=== PATIENT | male | born 1950 | race Caucasian/White ===

== ENCOUNTER 2017-03-21 08:08 | Observation (INO) | payer OTHER, MEDICARE ==
[~2017-03-21] VITALS: Ht 167.6 cm; Wt 84.5 kg
[~2017-03-21 08:08] MED LIST: BENA10TA48 PO; GLIM4TAB PO; METF1000 PO
--- NOTE | 2017-03-21 08:38 | ERA ---
ER Documentation Chief Complaint Date/Time DATE: 03/21/17 TIME: 08:36 Chief Complaint intermittent right arm and courtney foot numbness started 2 days ago.dizziness HPI Patient is a 66-year-old male who presents with sudden onset, constant, mild to moderate right arm weakness associated with right arm and facial numbness lasting 6 hours that occurred yesterday. He reports that the same symptoms occurred 2 days ago but resolved completely. He tried to see his PMD yesterday , but was told to come to the emergency department. He denies difficulty speaking. 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 He denies vertigo. He denies past history of stroke. He states that his symptoms completely resolved yesterday. ROS All systems reviewed and are negative except as per history of present illness. Medications Home Meds Reported Medications Simvastatin* (Zocor*) 10 Mg Tablet, 10 MG PO QHS, #30 TAB 03/21/17 Metformin Hcl* (Metformin Hcl*) 1,000 Mg Tablet, 1000 MG PO WITH BREAKFAST DINNE , #60 TAB 03/21/17 Glimepiride* (Glimepiride*) 4 Mg Tablet, 4 MG PO WITH BREAKFAST, TAB 03/21/17 Benazepril Hcl* (Benazepril Hcl*) 10 Mg Tablet, 10 MG PO DAILY, #30 TAB 03/21/17 Discontinued Reported Medications Glimepiride* (Glimepiride*) 4 Mg Tablet, 4 MG PO DAILY 11/21/11 Metformin Hcl* (Metformin Hcl*) 1,000 Mg Tablet, 1000 MG PO BID 11/21/11 Benazepril Hcl* (Benazepril Hcl*) 10 Mg Tablet, 10 MG PO BID 11/21/11 Allergies Allergies: Coded Allergies: No Known Allergies (Verified Allergy, Unknown, 03/21/17) PMhx/Soc Past medical history: Diabetes mellitus, hypertension, hyperlipidemia Past surgical history: Cholecystectomy Social history: Takes occasional alcohol, denies tobacco History of Surgery: No Anesthesia Reaction: No Hx Neurological Disorder: No Hx Respiratory Disorders: No Hx Cardiac Disorders: Yes (HTN) Hx Psychiatric Problems: No Hx Miscellaneous Medical Probl: No Hx Alcohol Use: Yes Hx Substance Use: No Hx Tobacco Use: No FmHx Family History: No coronary disease, No diabetes Physical Exam Vitals Vital Signs Date Time Temp Pulse Resp B/P Pulse Ox O2 Delivery O2 Flow Rate FiO2 03/21/17 11:35 59 18 165/77 99 Room Air 03/21/17 08:45 98.2 64 14 142/83 99 Room Air 03/21/17 08:12 98.2 67 18 164/75 98 Physical Exam Const: Alert, no acute distress Head: Atraumatic Eyes: Normal Conjunctiva, no pallor, no icterus ENT: Normal External Ears, Nose and Mouth. His membranes moist Neck: Full range of motion..~ No meningismus. No carotid bruit Resp: Clear to auscultation bilaterally, no wheezes, no rales Cardio: Regular rate and rhythm, no murmurs Abd: Soft, non tender, non distended. Skin: No petechiae or rashes Back: No midline or flank tenderness Ext: No cyanosis, or edema Neur: Awake and alert, cranial nerves II through XII intact bilaterally, strength incision full in 4 extremities, no pronator drift, no dysmetria Psych: Normal Mood and Affect Result Diagram: 03/21/17 0844 03/21/17 0844 Results 24 hrs Laboratory Tests Test 03/21/17 08:44 03/21/17 08:46 White Blood Count 6.910^3/ul Red Blood Count 4.1610^6/ul Hemoglobin 13.3g/dl Hematocrit 38.0% Mean Corpuscular Volume 91.3fl Mean Corpuscular Hemoglobin 32.0pg Mean Corpuscular Hemoglobin Concent 35.0g/dl Red Cell Distribution Width 12.3% Platelet Count 31507^3/UL Mean Platelet Volume 12.8fl Neutrophils % 67.6% Lymphocytes % 18.4% Monocytes % 10.0% Eosinophils % 3.3% Basophils % 0.4% Nucleated Red Blood Cells % 0.0/100WBC Neutrophils # 4.710^3/ul Lymphocytes # 1.310^3/ul Monocytes # 0.710^3/ul Eosinophils # 0.210^3/ul Basophils # 0.010^3/ul Nucleated Red Blood Cells # 0.010^3/ul Prothrombin Time 12.2Sec Prothrombin Time Ratio 1.0 INR International Normalized Ratio 0.91 Activated Partial Thromboplast Time 28.6Sec Sodium Level 138mmol/L Potassium Level 4.4mmol/L Chloride Level 97mmol/L Carbon Dioxide Level 27mmol/L Anion Gap 18 Blood Urea Nitrogen 16mg/dl Creatinine 0.84mg/dl Glucose Level 230mg/dl Calcium Level 9.9mg/dl Total Bilirubin 0.5mg/dl Direct Bilirubin 0.00mg/dl Indirect Bilirubin 0.5mg/dl Aspartate Amino Transf (AST/SGOT) 30IU/L Alanine Aminotransferase (ALT/SGPT) 38IU/L Alkaline Phosphatase 53IU/L Troponin I < 0.012ng/ml Total Protein 7.1g/dl Albumin 4.6g/dl Globulin 2.50g/dl Albumin/Globulin Ratio 1.84 Bedside Glucose 222mg/dL Current Medications Medications (Trade) Dose Ordered Sig/Elieser Route PRN Reason Start Time Stop Time Status Last Admin Dose Admin Aspirin (Aspirin) 162 mg ONCE ONCE PO 03/21/17 11:00 03/21/17 11:01 DC 03/21/17 11:26 Ondansetron HCl (Zofran Inj) 4 mg ER BRIDGE PRN IV NAUSEA AND/OR VOMITING 03/21/17 11:00 03/22/17 10:59 Acetaminophen (Tylenol Tab) 650 mg ER BRIDGE PRN PO MILD PAIN/FEVER 03/21/17 11:00 03/22/17 10:59 Procedures/MDM EKG read by me: Time 0843, rate 61 Rhythm: Normal sinus Rudolph: Normal Intervals: Normal ST-T waves: no ischemic changes Ectopy: No Q-waves: No Impression: No evidence of ischemia or arrhythmia MDM: Patient is a 66-year-old male with hypertension and diabetes who presents with 2 episodes in the last 3 days of right face and arm numbness associated with decreased hematology nurse educator strength and manual dexterity on the right. At this time he states his symptoms have completely resolved, and on physical exam there is no neurological deficit. The patient's head CT is unremarkable. He was given aspirin. Patient has no evidence of cardiac arrhythmia. His symptoms are consistent with TIA. His ABCD 2 score is intermediate risk, so he will be admitted for further workup. 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
[2017-03-21 08:45] VITALS: TEMP 98.2
--- NOTE | 2017-03-21 09:08 | RADRPT ---
PROCEDURE: CT Brain without contrast. CLINICAL INDICATION: Stroke TECHNIQUE: Routine CT scan of the brain was performed on a high resolution multi detector scanner without intravenous contrast. One or more of the following dose reduction techniques were used: Auto mated exposure control; Adjustment of the mA and/or kV according to patient size; Use of iterative r econstruction technique. CTDI = 42 mGy. DLP = 720 mGy-cm. COMPARISON: No prior relevant examinations are available for comparison. FINDINGS: Hemorrhage: No evidence of intracranial hemorrhage. Acute ischemic changes: No evidence of acute ischemic changes. Mass effect/Midline shift: None. Parenchymal volume: Within normal limits for age. Ventricular system: Concordant with parenchymal volume. Chronic changes: Mild chronic-appearing microvascular ischemic changes of the supratentorial white m atter. Atherosclerotic calcifications of the cavernous portions of both internal carotid arteries ar e present. Extracranial soft tissues: Soft tissue swelling of the dorsal left frontal scalp may be post-traumat ic. 7 mm probable dural calcification in the dorsal left frontal scalp near the vertex. Calvarium: No fractures. Paranasal sinuses: Visualized paranasal sinuses are clear. Mastoid air cells: Visualized mastoid air cells are clear. IMPRESSION: No acute intracranial abnormalities. Mild chronic-appearing microvascular ischemic changes of the supratentorial white matter. Mild soft tissue swelling involving the dorsal left frontal scalp is possibly post-traumatic. Results were discussed with Dr. Neil by telephone at 0904 hours on 03/21/[address] Sha borjas RPTAT: AADD .Sha Putnam MD, Date Time Electronically viewed and signed by .Sha Putnam MD, MD on 03/21/2017 09:07 .B/
--- NOTE | 2017-03-21 09:26 | RADRPT ---
PROCEDURE: XR Chest. CLINICAL INDICATION: Altered mental status TECHNIQUE: Single frontal view of the chest was obtained COMPARISON: None FINDINGS: The heart and mediastinum are within normal limits. The lungs are clear. There is no pleural effusion or pneumothorax. The bones and soft tissue show no acute change. IMPRESSION: No definite abnormalities are identified. RPTAT:AAJJ Dinh Stringer Physician Date Time Electronically viewed and signed by Dinh Stringer Physician on 03/21/2017 09:26 /
[2017-03-21 09:29] LABS: ADD SCAN DIFF NO
[2017-03-21 09:37] LABS: BASOPHILS % 0.4 % (0.0-2.0); EOSINOPHILS # 0.2 10^3/ul (0.0-0.5); EOSINOPHILS % 3.3 % (0.0-7.0); HEMOGLOBIN 13.3 g/dl (14.0-18.0); LYMPHOCYTES # 1.3 10^3/ul (0.8-2.9); LYMPHOCYTES % 18.4 % (15.0-51.0); MEAN CORPUSCULAR VOLUME 91.3 fl (82.0-101.0); MEAN PLATELET VOLUME 12.8 fl (7.4-10.4); MONOCYTE # 0.7 10^3/ul (0.3-0.9); NEUTROPHIL # 4.7 10^3/ul (1.6-7.5); NEUTROPHILS % 67.6 % (39.0-77.0); PLATELET COUNT 210 10^3/UL (140-415); RED BLOOD COUNT 4.16 10^6/ul (4.70-6.10); RED CELL DISTRIBUTION WIDTH 12.3 % (11.5-14.5); WHITE BLOOD COUNT 6.9 10^3/ul (4.8-10.8)
[2017-03-21 09:55] LABS: ALANINE AMINOTRANSFERASE 38 IU/L (13-69); ALBUMIN 4.6 g/dl (3.3-4.9); ALBUMIN/GLOBULIN RATIO 1.84; ALKALINE PHOSPHATASE 53 IU/L (42-121); ANION GAP 18 (8-16); ASPARTATE AMINO TRANSFERASE 30 IU/L (15-46); BILIRUBIN,INDIRECT 0.5 mg/dl (0-1.1); BILIRUBIN,TOTAL 0.5 mg/dl (0.2-1.3); BLOOD UREA NITROGEN 16 mg/dl (7-20); CALCIUM 9.9 mg/dl (8.4-10.2); CARBON DIOXIDE 27 mmol/L (21-31); CHLORIDE 97 mmol/L (97-110); CREATININE 0.84 mg/dl (0.61-1.24); GLUCOSE 230 mg/dl (70-220); POTASSIUM 4.4 mmol/L (3.5-5.1); SODIUM 138 mmol/L (135-144); TOTAL PROTEIN 7.1 g/dl (6.1-8.1)
[2017-03-21 09:57] LABS: INR 0.91; PROTIME 12.2 Sec (12.2-14.2)
[2017-03-21 09:58] LABS: PARTIAL THROMBOPLASTIN TIME 28.6 Sec (25.0-35.0)
[2017-03-21 10:17] LABS: TROPONIN-I < 0.012 ng/ml (0.00-0.12)
[2017-03-21] MEDS ORDERED: BENA10TA48 PO (10:30)
[2017-03-21] MEDS ORDERED: GLIM4TAB PO (10:31)
[2017-03-21] MEDS ORDERED: SIMV10TA PO (10:32)
[2017-03-21] MEDS ORDERED: METF1000 PO (10:32)
[2017-03-21] MEDS ORDERED: ASPIRIN 81 MG TAB PO ONE (11:00)
[2017-03-21] MEDS ORDERED: ONDANSETRON 4 MG INJ IV PRN ×2 (11:00→14:00)
[2017-03-21] MEDS ORDERED: ACETAMINOPHEN 325 MG TAB PO PRN ×2 (11:00→14:00)
[2017-03-21 12:18] VITALS: Ht 167.6 cm; Wt 84.5 kg
--- NOTE | 2017-03-21 13:52 | HP ---
Date/Time of Note Date/Time of Note DATE: 03/21/17 TIME: 13:46 Assessment/Plan VTE Prophylaxis VTE Prophylaxis Intervention: LMWH Lines/Catheters IV [facility]from [facility] Saline Lock Assessment/Plan Chief Complaint/Hosp Course 1. Right upper extremity and face numbness possibly secondary to TIA versus hyperglycemia-symptoms now resolved Check 2D echo and carotid ultrasound CT brain shows no acute findings but does show mild chronic-appearing microvascular ischemic changes of the supratentorial white matter and mild soft tissue swelling involving the dorsal left frontal scalp is possibly post- traumatic Aspirin and Lipitor 2. Diabetes: [id number] Hold home p.o. meds and start insulin Follow-up on A1c and lipid profile 3. Hypertension Resume home meds, patient is outside the window for permissive hypertension Prophylaxis: Lovenox Problems: HPI/ROS Admit Date/Time Admit Date/Time Mar 21, 2017 at 12:17 Hx of Present Illness Patient is a 66-year-old male with a history of hypertension and non-insulin- requiring diabetes. Patient presents with numbness in the right lip and in the right arm that started yesterday lasted for approximately 6 hours. Patient was told by his primary care physician to come to the ED, patient denies any history of strokes or history of heart attacks in the past. Patient denies any similar symptoms in the past and currently denies any numbness, weakness, nausea and vomiting. ROS Constitutional: improved, no complaints Eyes: no complaints ENT: no complaints Respiratory: no complaints Cardiovascular: no complaints Gastrointestinal: no complaints Genitourinary: no complaints Musculoskeletal: no complaints Skin: no complaints Neurologic: no complaints Endocrine: no complaints Lymphatic: no complaints Psychological: nl mood/affect, no complaints Immunologic: no complaints PMH/Family/Social Past Medical History Medical History: diabetes, high cholesterol, hypertension Past Surgical History Past Surgical Hx: cholecystectomy Family History Significant Family History: no pertinent family hx Social History Alcohol Use: occasionally Smoking Status: Never smoker Drug Use: none Exam/Review of Systems Vital Signs Vitals Vital Signs Date Time Temp Pulse Resp B/P Pulse Ox O2 Delivery O2 Flow Rate FiO2 03/21/17 11:35 59 18 165/77 99 Room Air 03/21/17 08:45 98.2 Exam Constitutional: alert, oriented Head: normocephalic Respiratory: clear to auscultation Cardiovascular: regular rate and rhythm Gastrointestinal: non-tender, soft, No distended Musculoskeletal: nl extremities to inspection Neurological: nl speech, nl strength, No focal weakness Labs Result Diagram: 03/21/1744 03/21/17843 Medications Medications Current Medications Miscellaneous Information Patients own medicat... BID@ XX ; Start 03/21/17 at 16:00 GURU HILTON Mar 21, 2017 13:51
[2017-03-21] MEDS ORDERED: HYDROCODONE/APAP (5/325) TAB PO PRN (14:00)
[2017-03-21] MEDS ORDERED: MAGNESIUM HYDROXIDE 30ML CUP PO PRN (14:00)
[2017-03-21] MEDS ORDERED: DOCUSATE SODIUM 100 MG CAP PO PRN (14:00)
[2017-03-21] MEDS ORDERED: GLUCAGON 1 MG INJ IM PRN (14:00)
[2017-03-21] MEDS ORDERED: morphine 2 MG INJ IV PRN (14:00)
[2017-03-21] MEDS ORDERED: ZOLPIDEM 5 MG TAB PO PRN (14:00)
[2017-03-21] MEDS ORDERED: GLUCOSE GEL 15 GRAM TUBE BUCCAL PRN (14:00)
[2017-03-21] MEDS ORDERED: DEXTROSE 50% 50 ML SYRINGE IV PRN ×2 (14:00)
[2017-03-21] MEDS ORDERED: hydrALAzine 20 MG INJ IV PRN (14:00)
[2017-03-21] MEDS ORDERED: GLUCOSE GEL 15 GRAM TUBE PO PRN ×2 (14:00)
[2017-03-21] MEDS ORDERED: NACL 0.9% 3 ML SYG IV SCH (14:00)
--- NOTE | 2017-03-21 14:11 | RADRPT ---
PROCEDURE: US carotid arteries. CLINICAL INDICATION: Dizziness. Transient ischemic attack. TECHNIQUE: Multiple sonographic images of the carotid arteries and vertebral arteries were obtaine d utilizing hill scale, duplex, and color-flow imaging. The images were reviewed on a PACS workstati on. COMPARISON: No prior studies are available for comparison. FINDINGS: Evaluation of the right carotid bifurcation region reveals mild atherosclerotic disease. Evaluation of the left carotid bifurcation region reveals mild atherosclerotic disease. There is antegrade flow within the vertebral arteries bilaterally. RIGHT CAROTID MEASUREMENTS: Common Carotid Htpres43 (cm/sec) Internal Carotid Artery 60 (cm/sec) External Carotid Artery 92 (cm/sec) Vertebral Artery 55 (cm/sec) Internal Carotid/Common Carotid0.8 LEFT CAROTID MEASUREMENTS: Common Carotid Wrunvj30 (cm/sec) Internal Carotid Artery 64 (cm/sec) External Carotid Artery 67 (cm/sec) Vertebral Artery 78 (cm/sec) Internal Carotid/Common Carotid0.9 Validated velocity measurements with angiographic measurements. Velocity criteria are extrapolated f rom diameter data as defined by the Society of Radiologists in Ultrasound Consensus Conference. Radi ology 2003; 229;340-346. This study does indirectly reference the measurement of the distal ICA nitin meter as the denominator for stenosis measurement. IMPRESSION: 1. Less than 50% stenosis bilaterally in the internal carotid arteries. 2. Normal antegrade flow in the vertebral arteries bilaterally. RPTAT: QQ SRU Consensus Conference Criteria for the Diagnosis of Carotid Artery Stenosis* Degree of Stenosis, % ICA PSV, cm/sec Plaque Estimate, % ICA/CCA PSV Ratio Normal <125 None <2.0 <50 <125 <50 <2.0 50 69 125-230 >50 2.0-4.0 >70 but less than near occlusion >230 >50 <4.0 Near occlusion High, low, or undetectable Visible Variable Total occlusion Undetectable Visible, no detectable lumen Not applicable *Cartoid artery stenosis: hill-scale and Doppler US diagnosis. Society of Radiologists in Ultrasound Consensus Conference. Radiology 2003; 229: 340-346 .Pola Fritz MD, Date Time Electronically viewed and signed by .Pola Fritz MD, on 03/21/2017 14:11 .R/
[2017-03-21 15:55] VITALS: BP 149/72; RESP 20
[2017-03-21 15:55] LABS: ADD UMIC YES; UR ASCORBIC ACID 20 mg/dL (NEGATIVE); UR BILIRUBIN (Dip) NEGATIVE (NEGATIVE); UR BLOOD (Dip) NEGATIVE (NEGATIVE); UR CLARITY CLEAR (CLEAR); UR COLOR YELLOW (YELLOW); UR GLUCOSE (Dip) 1+ mg/dL (NEGATIVE); UR KETONES (Dip) NEGATIVE (NEGATIVE); UR LEUKOCYTE ESTERASE (Dip) 1+ Leu/ul (NEGATIVE); UR MUCUS FEW /HPF (NONE SEEN); UR NITRITE (Dip) NEGATIVE (NEGATIVE); UR RBC 3 /HPF (0-5); UR SPECIFIC GRAVITY (Dip) 1.021 (1.003-1.030); UR TOTAL PROTEIN (Dip) NEGATIVE (NEGATIVE); UR UROBILINOGEN (Dip) NEGATIVE (NEGATIVE)
[2017-03-21 16:36] VITALS: PULSE 72
[2017-03-21] MEDS: INSULIN ASPART [NOVOLOG] 3 ML PEN SC SCH ×3 (18:25→21:00)
[2017-03-21] MEDS ORDERED: INSULIN GLARGINE [LANtus] 3 ML PEN SC SCH (20:00)
[2017-03-21 20:07] VITALS: PULSE 64
[2017-03-21 20:09] VITALS: BP 174/77; RESP 16
[2017-03-21] MEDS ORDERED: ATORVASTATIN 10 MG TAB PO SCH (21:00)
[2017-03-22] VITALS (12 sets, daily range): BP systolic 131–168; BP diastolic 65–80; PULSE 50–97; RESP 16–20
[2017-03-22] MEDS: ACCU-CHEK XX SCH (02:00)
[2017-03-22 07:34] LABS: ADD SCAN DIFF NO
[2017-03-22 07:46] LABS: BASOPHILS % 0.6 % (0.0-2.0); EOSINOPHILS # 0.2 10^3/ul (0.0-0.5); EOSINOPHILS % 2.8 % (0.0-7.0); HEMATOCRIT 41.7 % (42.0-52.0); HEMOGLOBIN 14.3 g/dl (14.0-18.0); LYMPHOCYTES # 1.1 10^3/ul (0.8-2.9); LYMPHOCYTES % 15.4 % (15.0-51.0); MEAN CORPUSCULAR HEMOGLOBIN 31.2 pg (29.0-33.0); MEAN CORPUSCULAR HGB CONC 34.3 g/dl (32.0-37.0); MEAN CORPUSCULAR VOLUME 90.8 fl (82.0-101.0); MEAN PLATELET VOLUME 12.6 fl (7.4-10.4); MONOCYTE # 0.7 10^3/ul (0.3-0.9); MONOCYTES % 9.6 % (0.0-11.0); NEUTROPHIL # 5.2 10^3/ul (1.6-7.5); NEUTROPHILS % 71.3 % (39.0-77.0); PLATELET COUNT 224 10^3/UL (140-415); RED BLOOD COUNT 4.59 10^6/ul (4.70-6.10); RED CELL DISTRIBUTION WIDTH 12.3 % (11.5-14.5); WHITE BLOOD COUNT 7.2 10^3/ul (4.8-10.8)
[2017-03-22] MEDS: ASPIRIN (EC) 81 MG TAB PO SCH (08:14)
[2017-03-22 08:15] LABS: CALCIUM 9.8 mg/dl (8.4-10.2); CREATININE 0.86 mg/dl (0.61-1.24); MAGNESIUM 1.7 mg/dl (1.7-2.5); PHOSPHORUS 3.7 mg/dl (2.5-4.9); POTASSIUM 4.2 mmol/L (3.5-5.1)
[2017-03-22] MEDS: BENAZEPRIL 10 MG TAB PO SCH (08:15)
[2017-03-22] MEDS: INSULIN ASPART [NOVOLOG] 3 ML PEN SC SCH ×7 (08:16→20:30)
[2017-03-22] MEDS: ENOXAPARIN 40 MG/0.4 ML SYG SC SCH (08:17)
[2017-03-22 08:26] LABS: T3 UPTAKE 37.3 % (23.5-40.5)
[2017-03-22] MEDS ORDERED: MAGNESIUM SULFATE 2 GM/50 ML 50 ML IVPB ONE (13:00)
--- NOTE | 2017-03-22 14:20 | RADRPT ---
Echocardiogram Report Patient Name: LYNETTE MCKENZIE Gender: Male Date: 1950 Study Date: 22-Mar-2017 Aircraft Manager: THOMAS Location: I Ref. Physician: GURU HILTON Quality: Adequate Procedures: Transthoracic echocardiogram with complete 2D, M-Mode, and Doppler examination. Indications: Transient Ischemic Attack. 2D/M Mode Doppler Measurement Value Normal Ranges Measurement Value Normal Ranges AoR Diam MM 3.6 cm AV Peak Dimitri 1.2 m/sec ACS MM 2.0 cm AV Peak PG 5.6 mmHg LVIDd 2D 3.3 3.5 - 5.6 cm LVOT Peak Dimitri 0.9 m/sec LVIDs 2D 2.1 2.1 - 4.1 cm LVOT Peak PG 3.2 mmHg LVPWd 2D 1.4 0.6 - 1.1 cm MV E Peak Dimitri 0.5 m/sec IVSd 2D 1.5 0.6 - 1.1 cm MV A Peak Dimitri 0.7 m/sec EDV 2D 45.2 cm3 MV E/A 0.6 ESV 2D 9.8 cm3 MV Decel Time 278 msec LA Dimen 2D 3.9 2.3 - 4.0 cm MV Decel [place] 2 MV E/A 0.6 PV Peak Dimitri 0.8 m/sec PV Peak PG 3.0 mmHg Findings Left Ventricle: Normal left ventricular systolic function. Normal left ventricular cavity size. Mild concentric left ventricular hypertrophy. Ejection fraction is visually estimated at 65 %. Tissue Doppler/Mitral Doppler indices are consistent with impaired relaxation (Stage I diastolic dysfunction). Right Ventricle: Normal right ventricular size. Normal right ventricular systolic function. Left Atrium: The left atrium is normal in size. Right Atrium: The right atrium is normal in size. Mitral Valve: Normal appearance and function of the mitral valve with trace physiologic regurgitation. Aortic Valve: Normal trileaflet aortic valve structure. Trace aortic valve regurgitation. Tricuspid Valve: Normal appearance and function of the tricuspid valve with trace physiologic regurgitation. Pulmonic Valve: Normal pulmonic valve appearance. No evidence of pulmonic regurgitation. Pericardium: Normal pericardium with no significant pericardial effusion. Aorta: Normal aortic root. IVC: Normal size and normal respiratory collapse consistent with normal right atrial pressure. Pulmonary Artery: Normal pulmonary artery size. Conclusions 1.Normal left ventricular systolic function. Normal left ventricular cavity size. Mild concentric left ventricular hypertrophy. Ejection fraction is visually estimated at 65 %. Tissue Doppler/Mitral Doppler indices are consistent with impaired relaxation (Stage I diastolic dysfunction). 2.Normal right ventricular size. Normal right ventricular systolic function. 3.The left atrium is normal in size. 4.The right atrium is normal in size. 5.No significant valvular stenosis or regurgitation seen. 6.Normal pericardium with no significant pericardial effusion. Electronically Signed By: Micah Liao 22-Mar-2017 14:20:07 -0700 Patient Name: LYNETTE MCKENZIE Study Date: 22-Mar-2017 [id number]
--- NOTE | 2017-03-22 19:38 | PN ---
Date/Time of Note Date/Time of Note DATE: 03/22/17 TIME: 19:36 Assessment/Plan VTE Prophylaxis VTE Prophylaxis Intervention: LMWH Lines/Catheters IV Catheter Type (from [facility]): Saline Lock Urinary Cath still in place: No (No samano cath) Assessment/Plan Chief Complaint/Hosp Course 1. Right upper extremity and face numbness possibly secondary to TIA versus hyperglycemia-symptoms resumed once again today 2D echo and carotid ultrasound showed no significant findings We will obtain an MRI of the brain Neurology consultation requested CT brain shows no acute findings but does show mild chronic-appearing microvascular ischemic changes of the supratentorial white matter and mild soft tissue swelling involving the dorsal left frontal scalp is possibly post- traumatic Aspirin and Lipitor 2. Diabetes: [id number] Hold home p.o. meds and start insulin Follow-up on A1c and lipid profile 3. Hypertension Resume home meds, patient is outside the window for permissive hypertension Prophylaxis: Lovenox Problems: Subjective 24 Hr Interval Summary Neurologic: other (Numbness in the right lip and right hand) Exam/Review of Systems Vital Signs Vitals Vital Signs Date Time Temp Pulse Resp B/P Pulse Ox O2 Delivery O2 Flow Rate FiO2 03/22/17 15:54 97.6 67 18 133/72 98 03/21/17 11:35 Room Air Intake and Output 03/21/17 03/21/17 03/22/17 15:00 23:00 07:00 Intake Total 300 ml 500 ml Balance 300 ml 500 ml Exam Constitutional: alert, oriented Respiratory: clear to auscultation Cardiovascular: regular rate and rhythm Gastrointestinal: soft, No distended Musculoskeletal: nl extremities to inspection Results Result Diagram: 03/22/17 0656 03/22/17 0656 Results 24 hrs Laboratory Tests Test 03/21/17 19:56 03/22/17 01:43 03/22/17 06:56 03/22/17 08:12 Bedside Glucose 193 140 215 White Blood Count 7.2 Red Blood Count 4.59 L Hemoglobin 14.3 Hematocrit 41.7 L Mean Corpuscular Volume 90.8 Mean Corpuscular Hemoglobin 31.2 Mean Corpuscular Hemoglobin Concent 34.3 Red Cell Distribution Width 12.3 Platelet Count 224 Mean Platelet Volume 12.6 H Neutrophils % 71.3 Lymphocytes % 15.4 Monocytes % 9.6 Eosinophils % 2.8 Basophils % 0.6 Nucleated Red Blood Cells % 0.0 Neutrophils # 5.2 Lymphocytes # 1.1 Monocytes # 0.7 Eosinophils # 0.2 Basophils # 0.0 Nucleated Red Blood Cells # 0.0 Sodium Level 139 Potassium Level 4.2 Chloride Level 97 Carbon Dioxide Level 29 Anion Gap 17 H Blood Urea Nitrogen 15 Creatinine 0.86 Glucose Level 196 Hemoglobin A1c 10.8 H Calcium Level 9.8 Phosphorus Level 3.7 Magnesium Level 1.7 Triglycerides Level 111 Cholesterol Level 168 LDL Cholesterol, Calculated 104 HDL Cholesterol 42 Cholesterol/HDL Ratio 4.0 Free Thyroxine Index 2.65 Thyroxine (T4) 7.1 Triiodothyronine (T3) Uptake 37.3 Test 03/22/17 11:52 03/22/17 17:17 Bedside Glucose 162 139 Medications Medications Current Medications Miscellaneous Information Patients own medicat... BID@ XX ; Start 03/21/17 at 16:00 Ondansetron HCl (Zofran Inj) 4 mg Q6H PRN IV NAUSEA AND/OR VOMITING; Start 03/21 at 14:00 Acetaminophen (Tylenol Tab) 650 mg Q6H PRN PO PAIN LEVEL 1-3 OR FEVER; Start at 14:00 Acetaminophen/ Hydrocodone Bitart ([place] (5/325)) 1 tab Q6H PRN PO MODERATE PAIN LEVEL 4-6; Start 03/21/17 at 14:00 Morphine Sulfate (morphine) 2 mg Q4H PRN IV SEVERE PAIN LEVEL 7-10; Start at 14:00 Docusate Sodium (Colace) 100 mg Q12H PRN PO CONSTIPATION; Start 03/21/17 at 14: 00 Magnesium Hydroxide (Milk Of Mag) 30 ml DAILY PRN PO CONSTIPATION; Start at 14:00 Zolpidem Tartrate (Ambien) 5 mg QHS PRN PO SLEEP; Start 03/21/17 at 14:00 Enoxaparin Sodium (Lovenox) 40 mg DAILY SC Last administered on 03/22/17 08:17 ; Admin Dose 40 MG; Start 03/22/17 at 09:00 Benazepril HCl (Lotensin) 10 mg DAILY PO Last administered on 03/22/17 08:15; Admin Dose 10 MG; Start 03/22/17 at 09:00 Atorvastatin Calcium (Lipitor) 10 mg QHS PO Last administered on 03/21/17 21:01 ; Admin Dose 10 MG; Start 03/21/17 at 21:00 Aspirin (Halfprin) 81 mg DAILY PO Last administered on 03/22/17 08:14; Admin Dose 81 MG; Start 03/22/17 at 09:00 Insulin Glargine (Lantus) 15 unit DAILY@20 SC Last administered on 03/21/17 21: 01; Admin Dose 15 UNIT; Start 03/21/17 at 20:00 Diagnostic Test (Pha) (Accu-Chek) 1 ea 02 XX ; Start 03/22/17 at 02:00 Miscellaneous Information 1 ea NOTE XX ; Start 03/21/17 at 14:00 Glucose (Glutose) 15 gm Q15M PRN PO DECREASED GLUCOSE; Start 03/21/17 at 14:00 Glucose (Glutose) 22.5 gm Q15M PRN PO DECREASED GLUCOSE; Start 03/21/17 at 14:00 Dextrose (D50w Syringe) 25 ml Q15M PRN IV DECREASED GLUCOSE; Start 03/21/17 at 14:00 Dextrose (D50w Syringe) 50 ml Q15M PRN IV DECREASED GLUCOSE; Start 03/21/17 at 14:00 Glucagon (Glucagen) 1 mg Q15M PRN IM DECREASED GLUCOSE; Start 03/21/17 at 14:00 Glucose (Glutose) 15 gm Q15M PRN BUCCAL DECREASED GLUCOSE; Start 03/21/17 at 14: 00 Hydralazine HCl (Apresoline) 10 mg Q4H PRN IV SBP>170 Last administered on 21:50; Admin Dose 10 MG; Start 03/21/17 at 14:00 GURU HILTON Mar 22, 2017 19:38
[2017-03-22] MEDS ORDERED: INSULIN GLARGINE [LANtus] 3 ML PEN SC SCH (20:00)
[2017-03-22] MEDS ORDERED: ATORVASTATIN 80 MG TAB PO SCH (21:00)
[2017-03-22] MEDS ORDERED: ATORVASTATIN 10 MG TAB PO SCH (21:00)
[2017-03-22 22:25] LABS: CALCIUM 9.3 mg/dl (8.4-10.2); CREATININE 1.05 mg/dl (0.61-1.24); POTASSIUM 4.3 mmol/L (3.5-5.1)
[2017-03-23] VITALS (10 sets, daily range): BP systolic 123–145; BP diastolic 67–77; PULSE 50–89; RESP 16–18
[2017-03-23] MEDS: ACCU-CHEK XX SCH (02:00)
--- NOTE | 2017-03-23 04:56 | RADRPT ---
PROCEDURE: MR Brain with and without contrast. CLINICAL INDICATION: Right upper extremity numbness and suspected stroke TECHNIQUE: Sagittal and axial T1 weighted, axial diffusion weighted, T2, and coronal gradient and axial FLAIR imaging before contrast. Multiplanar T1-weighted imaging after injection of 10 cc of in travenous Magnevist. COMPARISON: CT from 03/21/2017 FINDINGS: No high signal abnormalities are seen on the diffusion-weighted images to suggest the presence of ac darlin ischemia or recent infarct. There is no evidence of intracranial hemorrhage, mass effect, or mi dline shift. No extra-axial fluid collections are seen. Mild cortical atrophy with minimal ex vacuo dilatation of the ventricles. There are scattered foci of increased T2 / FLAIR signal in the subcort ical and deep white matter of both cerebral hemispheres. The changes are most likely due to chronic microvascular ischemic change. The appearance is not specifically suggest demyelinating disease.. No hypointense signal abnormalities are seen on the GRE images to suggest the presence of blood degr adation products. Normal flow voids are visible in the proximal intracranial arteries and dural sin uses, indicating patency. The post contrast images show no abnormal parenchymal, leptomeningeal, or dural enhancement. The visualized paranasal sinuses are grossly clear. IMPRESSION: Mild atrophy and chronic microvascular ischemic change. No evidence for demyelinating disease. No evidence for acute territorial infarction, hemorrhage, or mass. RPTAT: HLBE Physician Ezequiel Date Time Electronically viewed and signed by Physician Ezequiel on 03/23/2017 04:56 ALEXANDR/
[2017-03-23 07:39] LABS: ADD SCAN DIFF NO
[2017-03-23 07:42] LABS: BASOPHILS % 0.4 % (0.0-2.0); EOSINOPHILS # 0.2 10^3/ul (0.0-0.5); EOSINOPHILS % 2.8 % (0.0-7.0); HEMATOCRIT 39.3 % (42.0-52.0); HEMOGLOBIN 13.5 g/dl (14.0-18.0); LYMPHOCYTES # 1.2 10^3/ul (0.8-2.9); LYMPHOCYTES % 16.9 % (15.0-51.0); MEAN CORPUSCULAR HEMOGLOBIN 31.3 pg (29.0-33.0); MEAN CORPUSCULAR HGB CONC 34.4 g/dl (32.0-37.0); MEAN PLATELET VOLUME 12.6 fl (7.4-10.4); MONOCYTE # 0.8 10^3/ul (0.3-0.9); MONOCYTES % 11.3 % (0.0-11.0); NEUTROPHIL # 4.9 10^3/ul (1.6-7.5); NEUTROPHILS % 68.3 % (39.0-77.0); PLATELET COUNT 226 10^3/UL (140-415); RED BLOOD COUNT 4.32 10^6/ul (4.70-6.10); RED CELL DISTRIBUTION WIDTH 12.5 % (11.5-14.5); WHITE BLOOD COUNT 7.2 10^3/ul (4.8-10.8)
[2017-03-23] MEDS: INSULIN ASPART [NOVOLOG] 3 ML PEN SC SCH ×6 (08:00→17:44)
[2017-03-23] MEDS: ASPIRIN (EC) 81 MG TAB PO SCH (08:03)
[2017-03-23] MEDS: BENAZEPRIL 10 MG TAB PO SCH (08:03)
[2017-03-23] MEDS: ENOXAPARIN 40 MG/0.4 ML SYG SC SCH (08:08)
[2017-03-23 08:16] LABS: CALCIUM 9.2 mg/dl (8.4-10.2); CREATININE 0.96 mg/dl (0.61-1.24); MAGNESIUM 2.1 mg/dl (1.7-2.5); POTASSIUM 3.6 mmol/L (3.5-5.1)
[2017-03-23] MEDS ORDERED: LANT3I SC (13:02)
[2017-03-23] MEDS ORDERED: ASPI-664 PO (13:02)
[2017-03-23] MEDS ORDERED: NOVO3I SC (13:02)
--- NOTE | 2017-03-23 13:15 | DS ---
Date/Time of Note Date/Time of Note DATE: 03/23/17 TIME: 13:04 Discharge Summary Admission/Discharge Info Admit Date/Time Mar 21, 2017 at 10:53 Discharge Date/Time 1. TIA with right upper extremity and face numbness, resolved, on aspirin and zocor 2. Diabetes mellitus, stable on insulins 3. Hypertension, stable 4. Dyslipidemia, on zocor Patient Condition: Stable Hx of Present Illness Patient is a 66-year-old male with a history of hypertension and non-insulin- requiring diabetes. Patient presents with numbness in the right lip and in the right arm that started yesterday lasted for approximately 6 hours. Patient was told by his primary care physician to come to the ED, patient denies any history of strokes or history of heart attacks in the past. Patient denies any similar symptoms in the past and currently denies any numbness, weakness, nausea and vomiting. Hospital Course For work up of TIA, 2D echo and carotid ultrasound showed no significant findings. CT brain shows no acute findings but does show mild chronic-appearing microvascular ischemic changes of the supratentorial white matter and mild soft tissue swelling involving the dorsal left frontal scalp. MRI brain unremarkable. Patient is on aspirin and zocor. Patient has DM that she was on oral medications but HbA1c is over 10. Patient is put on insulins after admission, that significantly improved his blood glucose levels. He will be seen by visual educator and follow up with PCP outpatient. Home Meds Active Scripts Insulin Glargine* (Lantus*) 100 Unit/Ml Soln, 18 UNIT SC DAILY@20 for 30 Days Prov:MONICA MONSIVAIS MD 03/23/17 Insulin Aspart* (Novolog Insulin Pen*) 100 Unit/Ml Soln, 6 UNIT SC WITH MEALS for 30 Days Prov:MONICA MONSIVAIS MD 03/23/17 Aspirin* (Aspirin* EC) 81 Mg Tablet.dr, 81 MG PO DAILY for 30 Days Prov:MONICA MONSIVAIS MD 03/23/17 Reported Medications Simvastatin* (Zocor*) 10 Mg Tablet, 10 MG PO QHS, #30 TAB 03/21/17 Benazepril Hcl* (Benazepril Hcl*) 10 Mg Tablet, 10 MG PO DAILY, #30 TAB 03/21/17 Discontinued Reported Medications Metformin Hcl* (Metformin Hcl*) 1,000 Mg Tablet, 1000 MG PO WITH BREAKFAST DINNE , #60 TAB 03/21/17 Glimepiride* (Glimepiride*) 4 Mg Tablet, 4 MG PO WITH BREAKFAST, TAB 03/21/17 Glimepiride* (Glimepiride*) 4 Mg Tablet, 4 MG PO DAILY 11/21/11 Metformin Hcl* (Metformin Hcl*) 1,000 Mg Tablet, 1000 MG PO BID 11/21/11 Benazepril Hcl* (Benazepril Hcl*) 10 Mg Tablet, 10 MG PO BID 11/21/11 Follow-up Plan PCP in one week Primary Care Provider Morris Pulido Pending Labs Laboratory Tests Test 03/22/17 17:17 03/22/17 20:08 03/22/17 21:55 03/23/17 02:24 Bedside Glucose 139mg/dL (70-220) 169mg/dL (70-220) 149mg/dL (70-220) Sodium Level 131mmol/L (135-144) Potassium Level 4.3mmol/L (3.5-5.1) Chloride Level 97mmol/L (97-110) Carbon Dioxide Level 26mmol/L (21-31) Anion Gap 12 (8-16) Blood Urea Nitrogen 17mg/dl (7-20) Creatinine 1.05mg/dl (0.61-1.24) Glucose Level 221mg/dl (70-220) Calcium Level 9.3mg/dl (8.4-10.2) Magnesium Level 2.1mg/dl (1.7-2.5) Test 03/23/17 06:15 03/23/17 08:06 03/23/17 12:01 White Blood Count 7.210^3/ul (4.8-10.8) Red Blood Count 4.3210^6/ul (4.70-6.10) Hemoglobin 13.5g/dl (14.0-18.0) Hematocrit 39.3% (42.0-52.0) Mean Corpuscular Volume 91.0fl (82.0-101.0) Mean Corpuscular Hemoglobin 31.3pg (29.0-33.0) Mean Corpuscular Hemoglobin Concent 34.4g/dl (32.0-37.0) Red Cell Distribution Width 12.5% (11.5-14.5) Platelet Count 02772^3/UL (140-415) Mean Platelet Volume 12.6fl (7.4-10.4) Neutrophils % 68.3% (39.0-77.0) Lymphocytes % 16.9% (15.0-51.0) Monocytes % 11.3% (0.0-11.0) Eosinophils % 2.8% (0.0-7.0) Basophils % 0.4% (0.0-2.0) Nucleated Red Blood Cells % 0.0/100WBC (0.0-0.0) Neutrophils # 4.910^3/ul (1.6-7.5) Lymphocytes # 1.210^3/ul (0.8-2.9) Monocytes # 0.810^3/ul (0.3-0.9) Eosinophils # 0.210^3/ul (0.0-0.5) Basophils # 0.010^3/ul (0.0-0.1) Nucleated Red Blood Cells # 0.010^3/ul (0.0-0.0) Sodium Level 137mmol/L (135-144) Potassium Level 3.6mmol/L (3.5-5.1) Chloride Level 100mmol/L (97-110) Carbon Dioxide Level 27mmol/L (21-31) Anion Gap 14 (8-16) Blood Urea Nitrogen 17mg/dl (7-20) Creatinine 0.96mg/dl (0.61-1.24) Glucose Level 122mg/dl (70-220) Calcium Level 9.2mg/dl (8.4-10.2) Magnesium Level 2.1mg/dl (1.7-2.5) Bedside Glucose 132mg/dL (70-220) 171mg/dL (70-220) MONICA MONSIVAIS MD Mar 23, 2017 13:14
== END 2017-03-23 18:27 | disposition home or self-care (01) ==
LOC: E/R 08:08 → MS4 10:53 → OBSVTOIN 12:17 → UNDOADMOB 12:17 → MS4 12:17 → INTOOBSV 12:17
PROVIDERS: ADMIT Internal Medicine; ATTEND Internal Medicine
DX: G45.9 Transient cerebral ischemic attack, unspecified (principal); I10 Essential (primary) hypertension; E11.9 Type 2 diabetes mellitus without complications; E78.5 Hyperlipidemia, unspecified; Z79.4 Long term (current) use of insulin; Z90.49 Acquired absence of other specified parts of digestive tract
CPT/HCPCS: 36415; 70450; 70552; 71010; 80048; 80053; 80061; 81001; 82962; 83036; 83735; 84100; 84436; 84479; 84484; 85025; 85610; 85730; 93005; 93306; 93880; 99285; G0378; J0360; J1650; J1815

== ENCOUNTER 2018-11-17 16:12 | Emergency (ER) | payer OTHER, MEDICARE ==
[~2018-11-17] VITALS: Wt 85.0 kg
[~2018-11-17 16:12] MED LIST changes: +ASPI-817 PO; +BENA10TA4 PO; -BENA10TA48 PO; -GLIM4TAB PO; +LANT3I SC; -METF1000 PO; +NOVO3I SC; +SIMV10TA PO
[2018-11-17] MEDS ORDERED: morphine 4 MG/ML VIAL IV STA (17:39)
[2018-11-17] MEDS ORDERED: SOD CHLORIDE 0.9% 1,000 ML IV STA (17:39)
[2018-11-17] MEDS ORDERED: ONDANSETRON 4 MG INJ IV STA (17:39)
--- NOTE | 2018-11-17 17:41 | ERD ---
ER Documentation Chief Complaint Chief Complaint AP, vomiting since AM. diarrhea x1d. hx pancreatitis; 'similar pain' HPI 68-year-old male with a history of diabetes, pancreatitis, hypertension presenting with abdominal pain since this morning with associated nonbloody and nonbilious vomiting with nonbloody diarrhea. He is complaining of stabbing pain in the epigastrium that is radiating to his back. No alleviating or exacerbat ing factors. No associated fever or chills. Pain is an 8 out of 10. ROS All systems reviewed and are negative except as per history of present illness. Medications Home Meds Active Scripts Famotidine* (Pepcid*) 20 Mg Tablet, 20 MG PO DAILY for 7 Days, TAB Prov:DUKE RAMÍREZ MD 11/17/18 Metoclopramide* (Reglan*) 10 Mg Tablet, 10 MG PO Q6 PRN for NAUSEA AND/OR VOMITING, #10 TAB Prov:DUKE RAMÍREZ MD 11/17/18 Reported Medications Ibuprofen* (Ibuprofen*) 800 Mg Tablet, 800 MG PO Q6H PRN for PAIN, TAB 11/17/18 Lovastatin* (Lovastatin*) 10 Mg Tablet, 10 MG PO HS, TAB 11/17/18 Benazepril Hcl* (Benazepril Hcl*) 20 Mg Tablet, 20 MG PO DAILY, #30 TAB 11/17/18 Sitagliptin Phos/Metformin HCl (Janumet 50-1,000 mg Tablet) 1 Each Tablet, 1 EACH PO BID, TAB 11/17/18 Glimepiride* (Glimepiride*) 4 Mg Tablet, 4 MG PO WITH MEALS, TAB 11/17/18 Discontinued Reported Medications Simvastatin* (Zocor*) 10 Mg Tablet, 10 MG PO QHS, #30 TAB 03/21/17 Benazepril Hcl* (Benazepril Hcl*) 10 Mg Tablet, 10 MG PO DAILY, #30 TAB 03/21/17 Discontinued Scripts Insulin Glargine* (Lantus*) 100 Unit/Ml Soln, 18 UNIT SC DAILY@20 for 30 Days Prov:MONICA MONSIVAIS MD 03/23/17 Insulin Aspart* (Novolog Insulin Pen*) 100 Unit/Ml Soln, 6 UNIT SC WITH MEALS for 30 Days Prov:MONICA MONSIVAIS MD 03/23/17 Aspirin* (Aspirin* EC) 81 Mg Tablet., 81 MG PO DAILY for 30 Days Prov:MONICA MONSIVAIS MD 03/23/17 Allergies Allergies: Coded Allergies: No Known Allergies (Verified Allergy, Unknown, 11/17/18) PMhx/Soc History of Surgery: Yes (cholecystectomy) Anesthesia Reaction: Yes Hx Neurological Disorder: No Hx Respiratory Disorders: No Hx Cardiac Disorders: Yes (HTN) Hx Psychiatric Problems: No Hx Miscellaneous Medical Probl: Yes (DM) Hx Alcohol Use: Yes (2 beers once a weel) Hx Substance Use: No Hx Tobacco Use: Yes FmHx Family History: No coronary disease Physical Exam Vitals Vital Signs Date Temp Pulse Resp B/P (MAP) Pulse Ox O2 O2 Flow FiO2 Time Delivery Rate 11/17/18 98.8 83 16 177/79 95 Room Air 21:02 (111) 11/17/18 98.3 61 22 214/95 100 16:20 (134) Physical Exam Const: Actively vomiting, in distress due to pain Head: Atraumatic Eyes: Normal Conjunctiva ENT: Normal External Ears, Nose and Mouth. Neck: Full range of motion. No meningismus. Resp: Clear to auscultation bilaterally Cardio: Regular rate and rhythm, no murmurs Abd: Soft, non distended. Tender in the epigastrium with voluntary guarding, no rebound. Normal bowel sounds Skin: No petechiae or rashes Back: No midline or flank tenderness Ext: No cyanosis, or edema Neur: Awake and alert, no facial asymmetry, normal speech, moving all extremities Psych: Normal Mood and Affect Result Diagram: 11/17/18 1751 11/17/18 1751 Results 24 hrs Laboratory Tests Test 11/17/18 17:51 White Blood Count 10.7 10^3/ul Red Blood Count 4.01 10^6/ul Hemoglobin 12.3 g/dl Hematocrit 35.8 % Mean Corpuscular Volume 89.3 fl Mean Corpuscular Hemoglobin 30.7 pg Mean Corpuscular Hemoglobin Concent 34.4 g/dl Red Cell Distribution Width 12.0 % Platelet Count 260 10^3/UL Mean Platelet Volume 11.6 fl Immature Granulocytes % 0.500 % Neutrophils % 88.6 % Lymphocytes % 6.3 % Monocytes % 4.3 % Eosinophils % 0.0 % Basophils % 0.3 % Nucleated Red Blood Cells % 0.0 /100WBC Immature Granulocytes # 0.050 10^3/ul Neutrophils # 9.5 10^3/ul Lymphocytes # 0.7 10^3/ul Monocytes # 0.5 10^3/ul Eosinophils # 0.0 10^3/ul Basophils # 0.0 10^3/ul Nucleated Red Blood Cells # 0.0 10^3/ul Sodium Level 137 mmol/L Potassium Level 4.2 mmol/L Chloride Level 99 mmol/L Carbon Dioxide Level 21 mmol/L Anion Gap 17 Blood Urea Nitrogen 14 mg/dl Creatinine 0.96 mg/dl Est Glomerular Filtrat Rate mL/min > 60 mL/min Glucose Level 260 mg/dl Calcium Level 9.6 mg/dl Total Bilirubin 0.6 mg/dl Direct Bilirubin 0.00 mg/dl Indirect Bilirubin 0.6 mg/dl Aspartate Amino Transf (AST/SGOT) 23 IU/L Alanine Aminotransferase (ALT/SGPT) 23 IU/L Alkaline Phosphatase 69 IU/L Troponin I < 0.012 ng/ml Total Protein 7.6 g/dl Albumin 4.6 g/dl Globulin 3.00 g/dl Albumin/Globulin Ratio 1.53 Lipase 81 U/L Current Medications Medications Dose Sig/Elieser Start Time Status Last (Trade) Ordered Route PRN Stop Time Admin Dose Reason Admin Sodium 1,000 ml @ Q1H STAT 11/17/18 DC 11/17/18 Chloride 1,000 mls/hr IV 17:39 11/17/18 17:56 18:38 Morphine 4 mg ONCE STAT 11/17/18 DC 11/17/18 Sulfate IV 17:39 11/17/18 17:55 (morphine) 17:41 Ondansetron 4 mg ONCE STAT 11/17/18 DC 11/17/18 HCl (Zofran IV 17:39 11/17/18 17:55 Inj) 17:41 10 mg ONCE ONCE 11/17/18 DC 11/17/18 Metoclopramid IV 20:00 11/17/18 20:12 e HCl 20:01 (Reglan) Procedures/MDM EMERGENT LABS AND DIAGNOSTIC STUDIES: Lab Results above were reviewed and interpreted by me. CBC: no anemia or evidence of infection CMP: Hyperglycemic. No evidence of electrolyte abnormality, renal failure, hypoglycemia, liver failure, or biliary obstruction Lipase: no evidence of pancreatitis Troponin within normal limits, not indicative of cardiac ischemia 12-lead EKG was interpreted by Lisa Ramírez MD: Sinus bradycardia at 59 bpm Normal axis Normal intervals No acute ST or T wave changes suggestive of acute ischemia or STEMI. Radiology Results as interpreted by Radiology below were reviewed by Yoanna Ramírez MD: Chest x-ray shows no acute abnormalities CT abdomen and pelvis shows no acute abnormalities Initial Nursing notes reviewed. Previous Medical Records requested via the Electronic Health Record. EMERGENCY DEPARTMENT COURSE / MEDICAL DECISION MAKING: Patient is presenting with upper abdominal pain with nausea and vomiting. Vitals are notable for hypertension. No evidence of sepsis. CT of the abdomen did not show any significant abnormalities. Labs are unremarkable. Patient likely suffering from acute gastroenteritis. He was treated with IV fluids, jim lgesics, and antiemetics with improvement of his symptoms. He was tolerating fluids by mouth prior to discharge. He was discharged with Pepcid and antiemetics. Return precautions discussed. Patient's blood pressure was elevated (>120/80) but appears stable without evidence of hypertensive emergency or urgency. The patient was counseled about the risks of hypertension and urged to pursue outpatient monitoring and therapy within a week with their primary care physician. Departure Diagnosis: Primary Impression: Abdominal pain Abdominal location: epigastric Qualified Codes: R10.13 - Epigastric pain Additional Impression: Nausea vomiting and diarrhea Condition: Stable DUKE RAMÍREZ MD Nov 17, 2018 17:41
[2018-11-17] MEDS ORDERED: GLIM4TAB PO (18:15)
[2018-11-17] MEDS ORDERED: BENA20TA4 PO (18:15)
[2018-11-17] MEDS ORDERED: SITA1TAB5 PO (18:15)
[2018-11-17] MEDS ORDERED: LOVA10TA63 PO (18:16)
[2018-11-17] MEDS ORDERED: IBUP-1544 PO (18:16)
[2018-11-17] MEDS ORDERED: METOCLOPRAMIDE 10 MG INJ IV ONE (20:00)
[2018-11-17] MEDS ORDERED: METO10TA92 PO (20:03)
[2018-11-17] MEDS ORDERED: FAMO-96 PO (20:04)
[2018-11-17 21:02] VITALS: BP 177/79; PULSE 83; RESP 16
== END 2018-11-17 21:05 | disposition home or self-care (01) ==
LOC: E/R 16:12
DX: R10.13 Epigastric pain (principal); R11.2 Nausea with vomiting, unspecified; R19.7 Diarrhea, unspecified; I10 Essential (primary) hypertension; E11.9 Type 2 diabetes mellitus without complications; Z79.4 Long term (current) use of insulin; Z79.82 Long term (current) use of aspirin; Z87.891 Personal history of nicotine dependence
CPT/HCPCS: 36415; 71045; 74176; 80053; 83690; 84484; 85025; 93005; 96374; 96375; 99285; J2270; J2405; J2765; J7030